=== PATIENT | male | born 1980 | race African-American/Black ===

== ENCOUNTER 2017-01-22 00:45 | Emergency (ER) | payer MEDICAID ==
[~2017-01-22] VITALS: Ht 172.7 cm; Wt 89.0 kg
[2017-01-22 00:46] VITALS: BP 131/72; PULSE 100; RESP 20; TEMP 99.6; O2SAT 98
[2017-01-22] MEDS ORDERED: PERC10TA27 PO (01:11)
[2017-01-22] MEDS ORDERED: XANA2TAB2 PO (01:11)
[2017-01-22] MEDS ORDERED: METO-309 PO (01:11)
[2017-01-22] MEDS ORDERED: CALC950T2 PO (01:11)
[2017-01-22] MEDS ORDERED: CALC0.25 PO (01:11)
[2017-01-22] MEDS ORDERED: OMEP40CA2 PO (01:11)
[2017-01-22] MEDS ORDERED: CLON0.2T PO (01:11)
[2017-01-22] MEDS ORDERED: FURO1TAB60 PO (01:11)
[2017-01-22 01:17] VITALS: BP 108/66; PULSE 98; RESP 16; TEMP 98.8; O2SAT 98
[2017-01-22 02:01] LABS: AUTOMATED NEUTROPHIL # 8.3 TH/MM3 (1.8-7.7); BASOPHIL # 0.1 TH/MM3 (0-0.2); BASOPHIL % 0.7 % (0.0-2.0); EOSINOPHIL % 0.4 % (0.0-4.0); HEMATOCRIT 31.3 % (39.0-51.0); HEMO FLAGS DIFF FINAL; LYMPH % 9.4 % (9.0-44.0); MEAN CELL VOLUME 99.1 FL (80.0-100.0); MEAN CORPUSCULAR HEMOGLOBIN 33.6 PG (27.0-34.0); MEAN CORPUSCULAR HGB CONC 33.9 % (32.0-36.0); NEUT % 80.5 % (16.0-70.0); PLATELET COUNT 142 TH/MM3 (150-450); RED BLOOD COUNT 3.16 MIL/MM3 (4.50-5.90); RED CELL DISTRIBUTION WIDTH 16.6 % (11.6-17.2); WHITE BLOOD COUNT 10.3 TH/MM3 (4.0-11.0)
[2017-01-22 02:16] LABS: ALKALINE PHOSPHATASE 43 U/L (45-117); TOTAL BILIRUBIN ADULT 0.5 MG/DL (0.2-1.0)
[2017-01-22] MEDS ORDERED: MORPHINE SULFATE 4 MG/ML INJ IV PUSH ONE ×2 (02:45→04:30)
[2017-01-22] MEDS ORDERED: diphenhydrAMINE HCL 50 MG/ML VIAL IV PUSH ONE ×2 (02:45→04:30)
[2017-01-22] MEDS ORDERED: ACETAMINOPHEN/HYDROcodone 325 MG/5 MG TAB PO PRN (03:30)
[2017-01-22] MEDS ORDERED: ACETAMINOPHEN/HYDROcodone 325 MG/5 MG TAB PO ONE (03:30)
[2017-01-22 04:14] LABS: BLOOD UREA NITROGEN 79 MG/DL (7-18); GLOMERULAR FILTRATION RATE 3 ML/MIN (>89)
[2017-01-22 04:15] LABS: ALT (GPT) 13 U/L (12-78); ANION GAP 13 MEQ/L (5-15); AST (GOT) 12 U/L (15-37); BICARBONATE 23.7 MEQ/L (21.0-32.0); CALCIUM-PROTEIN CORRECTED 5.6 MG/DL (8.5-10.1); CHLORIDE 103 MEQ/L (98-107); POTASSIUM 4.1 MEQ/L (3.5-5.1); SODIUM (NA) 140 MEQ/L (136-145)
[2017-01-22 05:12] LABS: BACTERIA, URINE RARE /hpf; BLOOD, URINE SMALL (NEG); COMMENT (UR) CULT NOT INDICATED; CULTURE IF INDICATED CULT NOT INDICATED; GLUCOSE,URINE TRACE mg/dL (NEG); KETONE, URINE NEG (NEG); MUCUS URINE FEW /lpf (OCC); NITRITE,URINE NEG (NEG); PH, URINE 5.5 (5.0-8.5); SQUAMOUS EPITHELIAL CELL URINE <1 /hpf (0-5); URINE COLOR LIGHT-YELLOW (YELLW/STRAW)
--- NOTE | 2017-01-22 05:34 | PD ---
HPI Chief Complaint: Pain: Acute or Chronic Time Seen by Provider: 01:05 Travel History International Travel<30 days: No Contact w/Intl Traveler<30days: No Traveled to known affect area: No History of Present Illness HPI Patient is complaining of shaking chills body aches. He does not have any focal pain in his abdomen. He does his to no dialysis at home twice a day. Labs are sent exam lactic acid, CBC blood culture. patient has generalized aches is no focal belly pain. He has no signs or symptoms of SBP .. he only has subjective chills. he has no objective temperature at home and he is afebrile here in the ER 98.6 He also feels his lupus is in a flare but no labs values no vital signs of flare nor infection. PFSH Past Medical History Autoimmune Disease: Yes (LUPUS) Hypertension: Yes Musculoskeletal: Yes (CHRONIC BACK PAIN ) Renal Failure: Yes (ON PERITONEAL DIALYSIS ) Tetanus Vaccination: Unknown Influenza Vaccination: Yes Past Surgical History Eye Surgery: Yes (BILAT CATARACT SX) Joint Replacement: Yes (RIGHT TOTAL HIP ) Social History Alcohol Use: No Tobacco Use: No Substance Use: No Allergies-Medications (Allergen,Severity, Reaction): Coded Allergies: No Known Allergies (Unverified , 01/22/17) Reported Meds & Prescriptions Reported Meds & Active Scripts Active Reported Calcitrate (Calcium Citrate) 200 Mg (950 Mg) Tab 500 Mg PO TIDAC Calcitriol 0.25 Mcg Cap 0.25 Mcg PO DAILY Xanax (Alprazolam) 2 Mg Tab 2 Mg PO DAILY PRN Percocet (Oxycodone-Acetaminophen) 10-325 mg Tab 1 Tab PO Q6H PRN Omeprazole 40 Mg Cap 40 Mg PO DAILY Clonidine (Clonidine HCl) 0.2 Mg Tab 0.2 Mg PO BID Lasix (Furosemide) 40 Mg Tab 40 Mg PO BID Lopressor (Metoprolol Tartrate) 50 Mg Tab 25 Mg PO BID Review of Systems Except as stated in HPI: all other systems reviewed are Neg General / Constitutional: Positive: Chills, No: Fever Gastrointestinal: No: Abdominal Pain Musculoskeletal: Positive: Myalgias Physical Exam Narrative GENERAL: On toxic appearing awake alert no signs of sepsis SKIN: Warm and dry. HEAD: Atraumatic. Normocephalic. EYES: Pupils equal and round. No scleral icterus. No injection or drainage. ENT: No nasal bleeding or discharge. Mucous membranes pink and moist. NECK: Trachea midline. No JVD. CARDIOVASCULAR: Regular rate and rhythm. RESPIRATORY: No accessory muscle use. Clear to auscultation. Breath sounds equal bilaterally. GASTROINTESTINAL: Abdomen percussion of his peritoneum does not elicit any signs of peritonitis , he has no rebound , he has no guarding , nor any signs of peritonitis. Soft, non-tender, nondistended. Hepatic and splenic margins not palpable. dressing over dialysis port LLQ noted no signs of infection around site no pain elicited MUSCULOSKELETAL: Extremities without clubbing, cyanosis, or edema. No obvious deformities. NEUROLOGICAL: Awake and alert. No obvious cranial nerve deficits. Motor grossly within normal limits. Five out of 5 muscle strength in the arms and legs. Normal speech. PSYCHIATRIC: Appropriate mood and affect; insight and judgment normal. Data Data Last Documented VS Vital Signs Date Time Temp Pulse Resp B/P (MAP) Pulse Ox O2 Delivery O2 Flow Rate FiO2 01/22/17 06:18 01/22/17 01:17 98.8 98 16 98 Nasal Cannula Orders Orders Complete Blood Count With Diff (01/22/17 01:30) Comprehensive Metabolic Panel (01/22/17 01:30) Urinalysis - C+S If Indicated (01/22/17 01:30) Lactic Acid Sepsis Protocol (01/22/17 01:30) Blood Culture (01/22/17 01:30) Iv Access Insert/Monitor (01/22/17 01:30) Oxygen Administration (01/22/17 01:30) Oximetry (01/22/17 01:30) Blood Glucose (01/22/17 01:30) Morphine Inj (Morphine Inj) (01/22/17 02:45) Diphenhydramine Inj (Benadryl Inj) (01/22/17 02:45) Acetamin-Hydrocod 325-5 Mg ([place] 5-325 (01/22/17 03:30) Acetamin-Hydrocod 325-5 Mg ([place] 5-325 (01/22/17 03:30) Morphine Inj (Morphine Inj) (01/22/17 04:30) Diphenhydramine Inj (Benadryl Inj) (01/22/17 04:30) Labs Laboratory Tests Test 01/22/17 01:30 01/22/17 01:40 01/22/17 03:20 01/22/17 04:40 White Blood Count 10.3 TH/MM3 Red Blood Count 3.16 MIL/MM3 Hemoglobin 10.6 GM/DL Hematocrit 31.3 % Mean Corpuscular Volume 99.1 FL Mean Corpuscular Hemoglobin 33.6 PG Mean Corpuscular Hemoglobin Concent 33.9 % Red Cell Distribution Width 16.6 % Platelet Count 142 TH/MM3 Mean Platelet Volume 7.9 FL Neutrophils (%) (Auto) 80.5 % Lymphocytes (%) (Auto) 9.4 % Monocytes (%) (Auto) 9.0 % Eosinophils (%) (Auto) 0.4 % Basophils (%) (Auto) 0.7 % Neutrophils # (Auto) 8.3 TH/MM3 Lymphocytes # (Auto) 1.0 TH/MM3 Monocytes # (Auto) 0.9 TH/MM3 Eosinophils # (Auto) 0.0 TH/MM3 Basophils # (Auto) 0.1 TH/MM3 CBC Comment DIFF FINAL Differential Comment Lactic Acid Level 1.0 mmol/L Blood Urea Nitrogen 79 MG/DL Creatinine 19.24 MG/DL Random Glucose 78 MG/DL Total Protein 5.6 GM/DL Albumin 3.0 GM/DL Calcium Level LESS THAN 5.0 MG/DL Alkaline Phosphatase 43 U/L Aspartate Amino Transf (AST/SGOT) 12 U/L Alanine Aminotransferase (ALT/SGPT) 13 U/L Total Bilirubin 0.5 MG/DL Sodium Level 140 MEQ/L Potassium Level 4.1 MEQ/L Chloride Level 103 MEQ/L Carbon Dioxide Level 23.7 MEQ/L Anion Gap 13 MEQ/L Estimat Glomerular Filtration Rate 3 ML/MIN Protein Corrected Calcium 5.6 MG/DL Urine Color LIGHT-YELLOW Urine Turbidity CLEAR Urine pH 5.5 Urine Specific [place] 1.010 Urine Protein 30 mg/dL Urine Glucose (UA) TRACE mg/dL Urine Ketones NEG mg/dL Urine Occult Blood SMALL Urine Nitrite NEG Urine Bilirubin NEG Urine Urobilinogen LESS THAN 2.0 MG/DL Urine Leukocyte Esterase NEG Urine WBC 1 /hpf Urine Squamous Epithelial Cells <1 /hpf Urine Bacteria RARE /hpf Urine Mucus FEW /lpf Microscopic Urinalysis Comment CULT NOT INDICATED MDM Medical Decision Making Medical Screen Exam Complete: Yes Emergency Medical Condition: Yes Differential Diagnosis GENERAL: Nontoxic appearing alert oriented 3 SKIN: Warm and dry. HEAD: Atraumatic. Normocephalic. EYES: Pupils equal and round. No scleral icterus. No injection or drainage. ENT: No nasal bleeding or discharge. Mucous membranes pink and moist. NECK: Trachea midline. No JVD. CARDIOVASCULAR: Regular rate and rhythm. RESPIRATORY: No accessory muscle use. Clear to auscultation. Breath sounds equal bilaterally. GASTROINTESTINAL: Abdomen percussion of his abdomen does not elicit any peritoneal signs. Soft, nondistended. Hepatic and splenic margins not palpable. MUSCULOSKELETAL: Extremities without clubbing, cyanosis, or edema. No obvious deformities. NEUROLOGICAL: Awake and alert. No obvious cranial nerve deficits. Motor grossly within normal limits. Five out of 5 muscle strength in the arms and legs. Normal speech. PSYCHIATRIC: Appropriate mood and affect; insight and judgment normal. Narrative Course Hydration 250 cc fluid and urine labs sent blood cultures sent, Pain meds and benadryl IV as per patient request given, After all labs and vitals normal safe for outpt dicharge and close follow up, repeat temp 98 degrees. Diagnosis Primary Impression: Viral illness Additional Impression: Chills Disposition: DISCHARGE HOME Condition: Good Jarek Angela MD Jan 22, 2017 05:34
== END 2017-01-22 07:19 | disposition home or self-care (01) ==
LOC: NEPE 00:45
DX: B34.9 Viral infection, unspecified (principal); R68.83 Chills (without fever); M79.1 Myalgia; I10 Essential (primary) hypertension; N19 Unspecified kidney failure; Z99.2 Dependence on renal dialysis; Z86.2 Personal history of diseases of the blood and blood-forming organs and certain disorders involving the immune mechanism; Z87.39 Personal history of other diseases of the musculoskeletal system and connective tissue
CPT/HCPCS: 80053; 81001; 83605; 85025; 87040; 96374; 96375; 96376; 99285; J1200; J2270